=== PATIENT | male | born 1975 | race Two or more races ===

== ENCOUNTER 2021-07-19 13:23 | Emergency (ER) | payer SELFPAY ==
[~2021-07-19] VITALS: Ht 170.2 cm; Wt 84.5 kg
[2021-07-19] MEDS ORDERED: ASPIRIN 325 MG TABLET PO ONE (13:45)
[2021-07-19 14:07] LABS: BASO # 0.1 x10^3/uL (0.0-0.2); BASO % 1 % (0-3); EOS % 1 % (0-3); HEMATOCRIT 51.9 % (39.0-53.0); HEMOGLOBIN 17.7 g/dL (13.0-17.5); LYMPH # 1.9 x10^3/uL (1.0-4.8); LYMPH % 24 % (24-48); MEAN CORPUSCULAR HEMOGLOBIN 29 pg (25-35); MEAN CORPUSCULAR HGB CONC 34 g/dL (31-37); MEAN CORPUSCULAR VOLUME 85 fL (79-100); MONO # 0.4 x10^3/uL (0.0-1.1); MONO % 5 % (0-9); NEUT # 5.5 x10^3/uL (1.8-7.7); NEUT % 70 % (31-73); PLATELET COUNT 251 x10^3/uL (140-400); RED BLOOD COUNT 6.14 x10^6/uL (4.30-5.70); WHITE BLOOD COUNT 7.9 x10^3/uL (4.0-11.0)
--- NOTE | 2021-07-19 14:26 | RAD ---
XR CHEST 2V CLINICAL INDICATIONS: Reason: fell hit ribs on steps /pain. Findings: No acute lung infiltrate or pleural effusion or pulmonary edema or lung mass or pneumothora x is seen. The heart size, pulmonary vasculature, mediastinum and both vivian are unremarkable. The os seous structures appear intact. IMPRESSION: No acute radiographic abnormality is seen. Electronically signed by: Omid Morelos MD (07/19/2021 2:23 PM) [id number]
--- NOTE | 2021-07-19 14:30 | PHYS DOC ---
Past Medical History Past Medical History: Asthma Past Surgical History: No Surgical History General Adult EDM: Chief Complaint: SHORTNESS OF BREATH HPI: HPI: Patient is a 45 year old male with history of asthma who presents to the ED today complaining of shortness of breath that began 2 weeks ago after he fell and hit his right chest on a staircase. Patient denies any loss of consciousness, denies any head or neck pain. Currently denies any chest pain. States he has been using his albuterol inhaler with some relief to his shortness of breath. Denies any fever, coughing, nasal congestion. He states he had COVID19 one year ago and received the vaccine as well Review of Systems: Review of Systems: Constitutional: Denies fever or chills. [] Eyes: Denies change in visual acuity. [] HENT: Denies nasal congestion or sore throat. [] Respiratory: Reports shortness of breath. Denies cough Cardiovascular: Denies chest pain or edema. [] GI: Denies abdominal pain, nausea, vomiting, bloody stools or diarrhea. [] : Denies dysuria. [] Musculoskeletal: Denies back pain or joint pain. [] Integument: Denies rash. [] Neurologic: Denies headache, focal weakness or sensory changes. [] Psychiatric: Denies depression or anxiety. [] Heart Score: C/O Chest Pain: N/A Risk Factors: Risk Factors: DM, Current or recent (<one month) smoker, HTN, HLP, family history of CAD, obesity. Risk Scores: Score 0 - 3: 2.5% MACE over next 6 weeks - Discharge Home Score 4 - 6: 20.3% MACE over next 6 weeks - Admit for Clinical Observation Score 7 - 10: 72.7% MACE over next 6 weeks - Early Invasive Strategies Current Medications: Current Medications Medications (Trade) Dose Ordered Sig/Amanda Start Time Stop Time Status Last Admin Dose Admin Aspirin (Mckenzie Aspirin) 325 mg 1X ONCE 07/19/21 13:45 07/19/21 14:04 DC Allergies: Allergies: Allergies Coded Allergies Type Severity Reaction Last Updated Verified No Known Drug Allergies 07/19/21 No Physical Exam: PE: Constitutional: Well developed, well nourished, no acute distress, non-toxic appearance. [] HENT: Normocephalic, atraumatic, bilateral external ears normal, oropharynx moist, no oral exudates, nose normal. [] Eyes: PERRLA, EOMI, conjunctiva normal, no discharge. [] Neck: Normal range of motion, no tenderness, supple, no stridor. [] Cardiovascular:Heart rate regular rhythm, no murmur [] Lungs & Thorax: Bilateral breath sounds clear to auscultation [] Abdomen: Bowel sounds normal, soft, no tenderness, no masses, no pulsatile masses. [] Skin: Warm, dry, no erythema, no rash. [] Back: No tenderness, no CVA tenderness. [] Extremities: No tenderness, no cyanosis, no clubbing, ROM intact, no edema. [] Neurologic: Alert and oriented X 3, normal motor function, normal sensory function, no focal deficits noted. [] Psychologic: Affect normal, judgement normal, mood normal. [] Current Patient Data: Labs: Laboratory Tests Test 07/19/21 13:45 White Blood Count 7.9 x10^3/uL (4.0-11.0) Red Blood Count 6.14 x10^6/uL (4.30-5.70) H Hemoglobin 17.7 g/dL (13.0-17.5) H Hematocrit 51.9 % (39.0-53.0) Mean Corpuscular Volume 85 fL (79-100) Mean Corpuscular Hemoglobin 29 pg (25-35) Mean Corpuscular Hemoglobin Concent 34 g/dL (31-37) Red Cell Distribution Width 14.0 % (11.5-14.5) Platelet Count 251 x10^3/uL (140-400) Neutrophils (%) (Auto) 70 % (31-73) Lymphocytes (%) (Auto) 24 % (24-48) Monocytes (%) (Auto) 5 % (0-9) Eosinophils (%) (Auto) 1 % (0-3) Basophils (%) (Auto) 1 % (0-3) Neutrophils # (Auto) 5.5 x10^3/uL (1.8-7.7) Lymphocytes # (Auto) 1.9 x10^3/uL (1.0-4.8) Monocytes # (Auto) 0.4 x10^3/uL (0.0-1.1) Eosinophils # (Auto) 0.0 x10^3/uL (0.0-0.7) Basophils # (Auto) 0.1 x10^3/uL (0.0-0.2) Laboratory Tests 07/19/21 13:45 Vital Signs: Vital Signs Date Time Temp Pulse Resp B/P (MAP) Pulse Ox O2 Delivery O2 Flow Rate FiO2 07/19/21 13:35 98.6 84 12 148/84 (105) 98 Room Air 98.6 EKG: EK interpreted by Dr. Feng sinus rhythm heart rate 93 no STEMI [] Radiology/Procedures: Radiology/Procedures: []PROCEDURE: CHEST PA & LATERAL XR CHEST 2V CLINICAL INDICATIONS: Reason: fell hit ribs on steps /pain. Findings: No acute lung infiltrate or pleural effusion or pulmonary edema or lung mass or pneumothorax is seen. The heart size, pulmonary vasculature, mediastinum and both vivian are unremarkable. The osseous structures appear intact. IMPRESSION: No acute radiographic abnormality is seen. Electronically signed by: Charity Morelos MD (07/19/2021 2:23 PM) [id number] DICTATED and SIGNED BY: CHARITY MORELOS MD DATE: 07/19/21 [id number] Course & Med Decision Making: Course & Med Decision Making Pertinent Labs and Imaging studies reviewed. (See chart for details) This is a 45-year-old male patient presented to the ED today complaining of shortness of breath, symptoms began 2 weeks ago after he fell and hit his right chest on a staircase. Patient denies any chest pain. Vital signs on arrival to the ED temperature 98.6, heart rate 84, blood pressure 148/84, heart rate 99. Chest x-ray interpreted by radiologist as negative for any acute findings. CBC, CMP with no acute findings. Troponin is normal, BNP is normal. EKG is negative. Discharge to home with albuterol inhaler and prednisone for 5 days. Provided instructions to follow-up with his own PCP in the course of this week. Dragon Disclaimer: Dragon Disclaimer: This electronic medical record was generated, in whole or in part, using a voice recognition dictation system. Departure Departure Impression: Primary Impression: Asthma exacerbation Qualified Codes: J45.21 - Mild intermittent asthma with (acute) exacerbation Additional Impressions: Chest wall contusion Qualified Codes: S20.211A - Contusion of right front wall of thorax, initial encounter Fall Qualified Codes: W19.XXXA - Unspecified fall, initial encounter Disposition: HOME / SELF CARE / HOMELESS Condition: STABLE Patient Instructions: Asthma, Adult, Chest Contusion, [id number] Additional Instructions: You were evaluated in the emergency room for shortness of breath, your chest x- ray is negative for any acute findings. Your work-up including labs, EKG are negative for any acute findings. Please use the prescribed medications as ordered. Follow-up with your own doctor in the course of this week or next week Scripts Fluticasone Propionate (FLOVENT 100MCG DISKUS) 100 Mcg Disk.w.dev 1 PUFF IH BID, #1 INHALER 5 Refills Prov: SHEREE HAQ CLERK OPERATOR 07/19/21 Montelukast Sodium (SINGULAIR TABLET ) 10 Mg Tablet 10 MG PO DAILY for FOR ASTHMA, #90 TAB 0 Refills Prov: SHEREE HAQ CLERK OPERATOR 07/19/21 Albuterol Sulfate (Proair Hfa) 8.5 Gm Hfa.aer.ad 1 PUFF INH PRN Q6HRS PRN for SHORTNESS OF BREATH, #1 EACH 2 Refills Prov: SHEREE HAQ CLERK OPERATOR 07/19/21 Albuterol Sulfate (Proair Hfa) 8.5 Gm Hfa.aer.ad 2 PUFF IH PRN Q4-6HRS PRN for wheezing for 21 Days, #1 INHALER 0 Refills Prov: EUNSHEREE Juliocesar NGUYENN 07/19/21 Prednisone (PREDNISONE) 50 Mg Tablet 1 TAB PO DAILY, #5 TAB Prov: SHEREE HAQ APRN 07/19/21 EUNSHEREE Juliocesar CLERK OPERATOR Jul 19, 2021 14:30
[2021-07-19 14:31] LABS: CALCIUM 9.1 mg/dL (8.5-10.1); GFR 80.8; POTASSIUM 4.1 mmol/L (3.5-5.1)
[2021-07-19 14:37] LABS: ALBUMIN 4.4 g/dL (3.4-5.0); ALBUMIN/GLOBULIN RATIO 1.4 (1.0-1.7); MAGNESIUM 2.2 mg/dL (1.8-2.4); TOTAL BILIRUBIN 1.1 mg/dL (0.2-1.0); TOTAL PROTEIN 7.6 g/dL (6.4-8.2)
[2021-07-19] MEDS ORDERED: ALBU2.5V8 INH ×2 (14:44→15:04)
[2021-07-19 14:56] VITALS: BP 150/89
[2021-07-19] MEDS ORDERED: PRED50TA PO (14:57)
[2021-07-19] MEDS ORDERED: ALBU2.5V8 IH (14:57)
[2021-07-19] MEDS ORDERED: FLUT100D2 IH (15:04)
[2021-07-19] MEDS ORDERED: MONT10TA49 PO (15:04)
--- NOTE | 2021-07-19 19:16 | EKG ---
[facility] [address] [place] [id number] Test Date: 2021-07-19 Test Time: 13:37:13 Pat Name: DOROTHY WILLAMS Department: Room: Gender: M Manager Audio: : 1975 Requested By: SHEREE HAQ Order Number: [id number] Reading MD: Measurements Intervals [place] Rate: 93 P: 139 MT: 140 QRS: 200 QRSD: 90 T: 158 QT: 362 QTc: 453 Interpretive Statements SUPRAVENTRICULAR RHYTHM ABNORMAL RIGHT SUPERIOR AXIS DEVIATION S1,S2,S3 PATTERN CONSIDER RIGHT VENTRICULAR HYPERTROPHY T ABNORMALITY IN HIGH LATERAL LEADS INFERIOR LEADS ABNORMAL ECG RI6.02 No previous ECG available for comparison
--- NOTE | 2021-07-20 17:11 | NUR ---
IP: Informed pt of negative covid test. Pt verbalized understanding.
== END 2021-07-19 15:25 | disposition home or self-care (01) ==
LOC: ER 13:23
DX: S20.211A Contusion of right front wall of thorax, initial encounter (principal); J45.21 Mild intermittent asthma with (acute) exacerbation; W18.00XA Striking against unspecified object with subsequent fall, initial encounter; Y93.89 Activity, other specified; Y92.89 Other specified places as the place of occurrence of the external cause; Y99.8 Other external cause status
CPT/HCPCS: 36415; 71046; 80053; 83735; 83880; 84145; 84484; 85025; 87040; 87426; 93005; 99285; U0003; U0005